=== PATIENT | female | born 1945 | race Caucasian/White ===

== ENCOUNTER → 2016-07-19 | Outpatient (CLI) | payer MEDICARE, OTHER | LOC: OD 11:17 | PROVIDERS: ATTEND Nurse Practitioner Acute Care | DX: J40 Bronchitis, not specified as acute or chronic (principal) | CPT/HCPCS: 71020 ==

== ENCOUNTER → 2016-08-14 | Outpatient (CLI) | payer MEDICARE, OTHER | LOC: WI 13:06 | PROVIDERS: ATTEND Internal Medicine | DX: Z12.31 Encounter for screening mammogram for malignant neoplasm of breast (principal) | CPT/HCPCS: 77063; G0202; 77067 ==

== ENCOUNTER → 2017-09-04 | Outpatient (CLI) | payer MEDICARE, OTHER ==
--- NOTE | 2017-09-04 12:50 | WOMENS IMAGING REPORT ---
EXAM DESCRIPTION: 3D SCREENING MAMMO BILAT COMPLETED DATE/TIME: 09/04/2017 10:49 am REASON FOR STUDY: SCREENING MAMMO Z12.31 ENCNTR SCREEN MAMMOGRAM FOR MALIGNANT NEOPLASM OF CHRISTEL COMPARISON: 2015, 2016 TECHNIQUE: Standard craniocaudal and mediolateral oblique views of each breast recorded using digita l acquisition and breast tomosynthesis. LIMITATIONS: None. FINDINGS: Findings present which are benign by mammographic criteria. No suspicious masses, calcifi cations or architectural distortion. Pertinent benign findings: Fat necrosis right. Read with the assistance of CAD. .[facility] - R2 Cenova Version 1.3 .[facility] - R2 Cenova Version 1.3 .[facility] - R2 Cenova Version 2.4 .[facility] [place] R2 Cenova Version 2.4 .[facility] - R2 Cue Worker Version 9.2 Benign mammographic findings may include one or more of the following: Smooth masses, popcorn/rim/co arse calcifications, asymmetries, post-procedure changes, and lesions with long-standing stability. IMPRESSION: BENIGN MAMMOGRAPHIC FINDINGS. BIRADS 2 BREAST DENSITY: b. There are scattered areas of fibroglandular density. BIRAD: 2 BENIGN FINDING(S) RECOMMENDATION: RECOMMENDATION: ROUTINE SCREENING COMMENT: The patient has been notified of the results by letter per SA requirements. Additional no tification policies are in place for contacting patient with suspicious or incomplete findings. Quality ID #[id number]: The [employer] recommends an annual screening mammogram for women aged 40 years or over. This facility utilizes a reminder system to ensure that all patients receive reminder letters, and/or direct phone calls for appointments. This includes reminders for routine scr eening mammograms, diagnostic mammograms, or other Breast Imaging Interventions when appropriate. Th is patient will be placed in the appropriate reminder system. The [employer] (ACR) has developed recommendations for screening MRI of the breast s in certain patient populations, to be used in conjunction with mammography. Breast MRI surveillanc e may be appropriate for women with more than 20% lifetime risk of developing breast cancer as deter mined by genetic testing, significant family history of the disease, or history of mantle radiation f or Hodgkins Disease. ACR Practice Guidelines 2008. DBT Technology DBT is a type of tomographic mammography. With conventional mammography, overlapping breast tissue ma y make lesions difficult to detect, even with good compression. DBT uses an x-ray tube that rotates a round the breast, taking images at different angles. These images are then combined to create thin sl ices of the breast that the radiologist can view as a 3D reconstruction. The Hologic unit can perform full-field digital mammograms (2D imaging); or DBT (3D imaging); or both, in a combination mode that quickly performs both the mammogram and the tomosynthesis scan while the breast is still compressed. PQRS 6045F: Fluoroscopic imaging is not utilized for breast tomosynthesis. TECHNICAL DOCUMENTATION: FINDING NUMBER: (1) ASSESSMENT: (1) JOB ID: [id number] [employer]- All Rights Reserved Reading location - IP/workstation name: [email or web address]
== END ==
LOC: WI 09:56
PROVIDERS: ATTEND Internal Medicine
DX: Z12.31 Encounter for screening mammogram for malignant neoplasm of breast (principal)
CPT/HCPCS: 77063; 77067

== ENCOUNTER 2017-10-09 11:34 | Emergency (ER) | payer MEDICARE, OTHER ==
[2017-10-09] MEDS ORDERED: ONDANSETRON 4 MG TAB.RAPDIS PO ONE (12:22)
--- NOTE | 2017-10-09 12:22 | ER Document Report ---
ED Medical Screen (RME) - General Chief Complaint: Chest Pain Stated Complaint: CHEST PAIN Time Seen by Provider: 10/09/17 12:21 TRAVEL OUTSIDE OF THE U.S. IN LAST 30 DAYS: No - HPI Notes: 10/09/17 12:22 Nausea vomiting diarrhea for 3 days with chest pain 1 hour prior to arrival chest pain improved at this time history of stents last stents were placed in [place] by Dr. Cooper - Related Data Allergies/Adverse Reactions: No Known Allergies Allergy (Verified 10/09/17 12:19) Past Medical History - Past Medical History Cardiac Medical History: Reports: Hx Coronary Artery Disease, Hx Heart Attack, Hx Hypertension Psychiatric Medical History: Denies: Hx Depression Past Surgical History: Reports: Hx Cardiac Catheterization - 3 stents, Hx Hysterectomy, Hx Orthopedic Surgery - back, Hx Tonsillectomy - Immunizations Hx Diphtheria, Pertussis, Tetanus Vaccination: No Review of Systems - Review of Systems Cardiovascular: Chest pain Gastrointestinal: Diarrhea, Nausea, Vomiting Physical Exam - Vital signs Vitals: Temp Pulse Resp BP Pulse Ox 97.3 F 60 20 101/71 99 10/09/17 11:53 10/09/17 11:53 10/09/17 11:53 10/09/17 11:53 10/09/17 11:53 - Respiratory Respiratory status: No respiratory distress Chest status: Nontender Breath sounds: Normal Chest palpation: Normal Course - Vital Signs Vital signs: Temp Pulse Resp BP Pulse Ox 97.3 F 60 20 101/71 99 10/09/17 11:53 10/09/17 11:53 10/09/17 11:53 10/09/17 11:53 10/09/17 11:53 Doctor's Discharge - Discharge Referrals: RAJIV OGLESBY MD [Primary Care Provider] - Follow up as needed
--- NOTE | 2017-10-09 12:37 | RADIOLOGY REPORT (SQ) ---
EXAM DESCRIPTION: CHEST SINGLE VIEW COMPLETED DATE/TIME: 10/09/2017 12:27 pm REASON FOR STUDY: cp COMPARISON: March 2015 EXAM PARAMETERS: NUMBER OF VIEWS: One view. TECHNIQUE: Single frontal radiographic view of the chest acquired. RADIATION DOSE: NA LIMITATIONS: None. FINDINGS: LUNGS AND PLEURA: No opacities, masses or pneumothorax. No pleural effusion. MEDIASTINUM AND HILAR STRUCTURES: No masses. Contour normal. HEART AND VASCULAR STRUCTURES: Heart normal in size. Normal vasculature. BONES: No acute findings. HARDWARE: None in the chest. OTHER: Orthopedic hardware is identified in the lower thoracic and upper lumbar spine. IMPRESSION: NO ACUTE RADIOGRAPHIC FINDING IN THE CHEST. TECHNICAL DOCUMENTATION: JOB ID: [id number] [employer]- All Rights Reserved Reading location - IP/workstation name: [email or web address]
--- NOTE | 2017-10-09 13:15 | EKG REPORT ---
SEVERITY:- NORMAL ECG - SINUS RHYTHM : Confirmed by: Richardson Ferreira MD 09-Oct-2017 13:14:26
[2017-10-09 13:45] LABS: ABSOLUTE EOSINOPHILS # (AUTO) 0.1 10^3/uL (0.0-0.6); ABSOLUTE LYMPHOCYTES (AUTO) 1.2 10^3/uL (0.5-4.7); ABSOLUTE MONOCYTES (AUTO) 0.5 10^3/uL (0.1-1.4); ABSOLUTE NEUT (AUTO) 4.3 10^3/uL (1.7-8.2); BASOPHILS % (AUTO) 0.6 % (0-2); EOSINOPHILS % (AUTO) 2.1 % (0-6); HEMATOCRIT 39.4 % (36.0-47.0); HEMOGLOBIN 13.3 g/dL (12.0-15.5); LYMPHOCYTES % (AUTO) 19.8 % (13-45); MEAN CORPUSCULAR HEMOGLOBIN 29.7 pg (27.0-33.4); MEAN CORPUSCULAR HGB CONC 33.8 g/dL (32.0-36.0); MEAN CORPUSCULAR VOLUME 88 fl (80-97); MONOCYTES % (AUTO) 8.8 % (3-13); PLATELET COUNT 241 10^3/uL (150-450); RED CELL DISTRIBUTION WIDTH 15.6 % (11.5-14.0); SEGMENTED NEUTROPHILS % (AUTO) 68.7 % (42-78); TOTAL CELLS COUNTED % (AUTO) 100 %; WHITE BLOOD COUNT 6.2 10^3/uL (4.0-10.5)
[2017-10-09 13:47] LABS: INTERNATIONAL RATION (INR) 0.94; PROTHROMBIN TIME 13.1 SEC (11.4-15.4)
[2017-10-09 14:12] LABS: CREATINE KINASE MB 1.06 ng/mL (<4.55)
[2017-10-09 14:15] LABS: TROPONIN I < 0.012 ng/mL
[2017-10-09 14:35] LABS: ALANINE AMINOTRANSFERASE 20 U/L (9-52); ALBUMIN 4.3 g/dL (3.5-5.0); ALKALINE PHOSPHATASE 83 U/L (38-126); ANION GAP 13 (5-19); ASPARTATE AMINO TRANSFERASE 19 U/L (14-36); BILIRUBIN,DIRECT 0.4 mg/dL (0.0-0.4); BILIRUBIN,TOTAL 0.4 mg/dL (0.2-1.3); BLOOD UREA NITROGEN 20 mg/dL (7-20); CALCIUM 9.7 mg/dL (8.4-10.2); CARBON DIOXIDE 31 mmol/L (22-30); CHLORIDE 98 mmol/L (98-107); CREATINE KINASE 43 U/L (30-135); GLUCOSE 95 mg/dL (75-110); LIPASE 66.5 U/L (23-300); POTASSIUM 4.3 mmol/L (3.6-5.0); SODIUM 141.7 mmol/L (137-145); TOTAL PROTEIN 6.9 g/dL (6.3-8.2)
--- NOTE | 2017-10-09 15:07 | ER Document Report ---
ED General <FERMÍN WANG - Last Filed: 10/09/17 17:56> - General Mode of Arrival: Ambulatory Information source: Patient TRAVEL OUTSIDE OF THE U.[place]. IN LAST 30 DAYS: No <WILMAN GUO - Last Filed: 10/10/17 18:12> - General Chief Complaint: Chest Pain Stated Complaint: CHEST PAIN Time Seen by Provider: 10/09/17 12:21 Notes: Patient is a 72 year old female with HTN and depression a history of nSTEMI ( May 08, 2014), cardiac stents x5 (last placed in Mar 2017) and back surgery presents to the emergency department complaining of chest pain onset around 1100 today. Patient states she began to have left sided neck, jaw and shoulder pain which she states feels similar to when she had a nSTEMI in 2014. Patient also complains of nausea, vomiting, and diarrhea onset Saturday. She states she would have diarrhea at least 3-4x a day describing it as black loose stool. Patient admits to taking Pepto Bismol in attempt to alleviate her symptoms. At bedside patient states she feels better after receiving medications in triage. Patient is currently taking Plavix and and Percocet 10 mg 2x daily. (WILMAN GUO) - Related Data Allergies/Adverse Reactions: No Known Allergies Allergy (Verified 10/09/17 12:19) Past Medical History - General Information source: Patient - Social History Smoking Status: Never Smoker Chew tobacco use (# tins/day): No Frequency of alcohol use: None Drug Abuse: None Family History: Reviewed & Not Pertinent Patient has suicidal ideation: No Patient has homicidal ideation: No - Past Medical History Cardiac Medical History: Reports: Hx Coronary Artery Disease, Hx Heart Attack, Hx Hypertension Musculoskeltal Medical History: Reports Other - Lumbar triangle hernia Psychiatric Medical History: Reports: Hx Depression Traumatic Medical History: Reports: Hx Fractures - Compression fracture of T4 Past Surgical History: Reports: Hx Cardiac Catheterization - 5 stents, last placed in Mar 2017, Hx Hysterectomy, Hx Orthopedic Surgery - Fusion of T12-S1., Hx Tonsillectomy - Immunizations Hx Diphtheria, Pertussis, Tetanus Vaccination: No <WILMAN GUO - Last Filed: 10/10/17 18:12> Review of Systems - Review of Systems Constitutional: No symptoms reported EENT: See HPI Cardiovascular: See HPI, Chest pain Respiratory: No symptoms reported Gastrointestinal: See HPI, Diarrhea, Nausea, Vomiting Genitourinary: No symptoms reported Female Genitourinary: No symptoms reported Musculoskeletal: See HPI Skin: No symptoms reported Hematologic/Lymphatic: No symptoms reported Neurological/Psychological: No symptoms reported -: Yes All other systems reviewed and negative <WILMAN GUO - Last Filed: 10/10/17 18:12> Physical Exam - General General appearance: Appears well, Alert In distress: None - HEENT Head: Normocephalic, Atraumatic Eyes: Normal Conjunctiva: Normal Extraocular movements intact: Yes Pupils: PERRL Neck: Normal - Respiratory Respiratory status: No respiratory distress Chest status: Tender - Left anterior chest wall tenderness to palpation Breath sounds: Normal Chest palpation: Normal - Cardiovascular Rhythm: Regular Heart sounds: Normal auscultation Murmur: No Friction rub: No Gallop: None auscultated - Abdominal Inspection: Normal Distension: No distension Bowel sounds: Normal Tenderness: Nontender Organomegaly: No organomegaly - Back Back: Other - Left flank contains hernia, soft, reduicble, consistent with retroperitoneal approach to back surgery - Extremities General upper extremity: Normal ROM General lower extremity: Normal ROM - Neurological Neuro grossly intact: Yes Cognition: Normal Orientation: AAOx4 Laverne Coma Scale Eye Opening: Spontaneous [place] Coma Scale Verbal: Oriented [place] Coma Scale Motor: Obeys Commands [place] Coma Scale Total: 15 Speech: Normal - Psychological Associated symptoms: Normal affect, Normal mood - Skin Skin Temperature: Warm Skin Moisture: Dry Skin Color: Normal <WILMAN GUO - Last Filed: 10/10/17 18:12> - Vital signs Vitals: Temp Pulse Resp BP Pulse Ox 97.3 F 60 20 101/71 99 10/09/17 11:53 10/09/17 11:53 10/09/17 11:53 10/09/17 11:53 10/09/17 11:53 Course - Laboratory Result Diagrams: 10/09/17 13:03 10/09/17 13:03 <FERMÍN WANG - Last Filed: 10/09/17 17:56> - Laboratory Result Diagrams: 10/09/17 13:03 10/09/17 13:03 <WILMAN GUO - Last Filed: 10/10/17 18:12> - Re-evaluation Re-evalutation: 10/09/17 17:56 Patient is feeling much better. She states her nauseousness is remained gone since getting the Zofran. She has not had any diarrhea while she is here. She has had almost 2 L of IV fluids at this time. She is comfortable being discharged with prescription for Zofran. She has a follow-up appointment with her primary care provider in 2 days. (FERMÍN WANG) - Vital Signs Vital signs: Temp Pulse Resp BP Pulse Ox 97.4 F 65 20 133/57 H 100 10/09/17 18:19 10/09/17 18:19 10/09/17 11:53 10/09/17 18:19 10/09/17 18:19 - Laboratory Laboratory results interpreted by me: 10/09/17 10/09/17 10/09/17 13:03 13:03 16:39 RDW 15.6 H Carbon Dioxide 31 H Ur Leukocyte Esterase TRACE H Urine Ascorbic Acid 40 H Discharge <FERMÍN WANG - Last Filed: 10/09/17 17:56> <WILMAN GUO - Last Filed: 10/10/17 18:12> - Discharge Clinical Impression: Nausea vomiting and diarrhea, Chest wall pain Chest pain Qualifiers: Chest pain type: unspecified Qualified Code(s): R07.9 - Chest pain, unspecified Condition: Stable Disposition: HOME, SELF-CARE Additional Instructions: Gastroenteritis: You most likely have gastroenteritis. This is an irritation of the stomach and intestinal tract. It's usually caused by a virus, but can also be caused by bacteria, toxins that cause food poisoning, or excessive alcohol intake. Symptoms may include fever, painful abdominal cramps, nausea, vomiting , and diarrhea. Start with small amounts (two to six ounces) of clear liquids (soft drinks , herb teas, broth, etc). Try to take fluids frequently even if you are vomiting, to prevent dehydration. When liquids are being consumed successfully , advance to small amounts of bland food (mashed potato, toast) for 6 - 12 hours. Gastroenteritis rarely requires medication. It goes away by itself. Use good handwashing so you don't spread germs. Wash underwear in very hot water. If symptoms are severe, talk to the doctor. Call your physician if blood appears in your vomitus or stool, if vomiting lasts longer than 24 hours, if the abdominal pain worsens or becomes localized to one area, or if you develop high fever. Chest Wall Pain: Your chest pain has been diagnosed as coming from the chest wall. This is often caused by straining the muscles or joints in the chest during physical activity, direct trauma, coughing, or vigorous vomiting. Persons with arthritis are especially prone to this type of pain, due to inflammation of the cartilage joints near the breast bone. Occasionally, no cause can be found. Rest from strenuous physical activity. This kind of chest pain is usually made worse by movement of the chest. Depending on the symptoms, we may prescribe medicine for pain, muscle relaxation, and antiinflammatory effects. If the pain is new, and seems to be due to muscle strain, cold packs can help. Otherwise, apply gentle warmth to the painful area for 15 minutes every hour or two. You should contact the doctor immediately if things change. Further evaluation is needed if you develop a fever or cough, if the nature of the pain changes, or if you become short of breath. Take the medication as prescribed for nausea if needed. Drink small sips of cool clear liquids throughout the day in the evening. Take Pepto-Bismol or Imodium-AD for diarrhea if needed. Follow-up with your primary care provider in 2 days as planned. RETURN TO THE EMERGENCY ROOM IF ANY NEW OR WORSENING SYMPTOMS. Prescriptions: Ondansetron [Zofran Odt 4 mg Tablet] 1 - 2 tab PO Q4H #20 tab.rapdis Referrals: RAJIV OGLESBY MD [Primary Care Provider] - Follow up as needed Matt Attestation: 10/09/17 17:58 I personally performed the services described in the documentation, reviewed and edited the documentation which was dictated to the scribe in my presence, and it accurately records my words and actions. (FERMÍN WANG) Peteyibe Documentation - Scribe Written by Matt:: Matt Bryant, 10/09/2017 15:53 acting as scribe for :: Sherita <WILMAN GUO - Last Filed: 10/10/17 18:12>
[2017-10-09] MEDS ORDERED: KETOROLAC TROMETHAMINE INJ/PF 30 MG/1 ML SDV IV ONE (15:17)
[2017-10-09] MEDS ORDERED: DEXTROSE 5%-NORMAL SALINE 1,000 ML IV ONE (15:17)
[2017-10-09] MEDS ORDERED: NORMAL SALINE 1000 ML 1,000 ML IV ONE (16:17)
[2017-10-09 17:09] LABS: APPEARANCE,URINE SLIGHTLY-CLOUDY; BILIRUBIN,URINE NEGATIVE (NEGATIVE); COLOR,URINE YELLOW; GLUCOSE, URINE NEGATIVE (NEGATIVE); KETONES,URINE NEGATIVE (NEGATIVE); LEUKOCYTE ESTERASE,URINE TRACE (NEGATIVE); NITRITE,URINE NEGATIVE (NEGATIVE); PROTEIN,URINE NEGATIVE (NEGATIVE); URINE SPECIFIC GRAVITY 1.012; UROBILINOGEN,URINE NEGATIVE mg/dL (<2.0)
[2017-10-09 18:24] VITALS: BP 133/57
== END 2017-10-09 18:40 | disposition home or self-care (01) ==
LOC: ER 11:34
DX: R07.89 Other chest pain (principal); M54.2 Cervicalgia; R68.84 Jaw pain; M25.519 Pain in unspecified shoulder; K46.9 Unspecified abdominal hernia without obstruction or gangrene; I25.10 Atherosclerotic heart disease of native coronary artery without angina pectoris; I10 Essential (primary) hypertension; I25.2 Old myocardial infarction; R11.2 Nausea with vomiting, unspecified; R19.7 Diarrhea, unspecified; R19.5 Other fecal abnormalities; Z95.5 Presence of coronary angioplasty implant and graft; Z79.02 Long term (current) use of antithrombotics/antiplatelets; Z79.891 Long term (current) use of opiate analgesic
CPT/HCPCS: 93005; 99285; 96361; 96374; 36415; 82553; 82550; 83690; 85025; 85610; 80053; 81001; 84484; 71045; 93010; A9270; J1885; J7030; S0119

== ENCOUNTER → 2017-10-11 | Outpatient (CLI) | payer MEDICARE, OTHER ==
--- NOTE | 2017-10-11 14:19 | RADIOLOGY REPORT (SQ) ---
EXAM DESCRIPTION: CT ABD/PELVIS WITH IV ORAL COMPLETED DATE/TIME: 10/11/2017 1:59 pm REASON FOR STUDY: ABD PAIN (R10.9) R10.9 UNSPECIFIED ABDOMINAL PAIN R19.7 DIARRHEA, UNSPECIFIED COMPARISON: 04/14/2015. TECHNIQUE: CT scan of the abdomen and pelvis performed using helical scanning technique with dynamic intravenous contrast injection. No oral contrast. Images reviewed with lung, soft tissue, and bone windows. Reconstructed coronal and sagittal MPR images reviewed. Delayed images for evaluation of the urinary system also acquired. All images stored on PACS. All CT scanners at this facility use dose modulation, iterative reconstruction, and/or weight based d osing when appropriate to reduce radiation dose to as low as reasonably achievable (ALARA). [facility]: Dose Right [facility]: CareDose [facility]: Dose Right [facility]: Teradose 4D [facility]: Notch CONTRAST TYPE AND DOSE: contrast/concentration: Isovue 370.00 mg/ml; Total Contrast Delivered: 70.0 ml; Total Saline Delivered: 54.0 ml RENAL FUNCTION: Creatinine 0.8. RADIATION DOSE: CT Rad equipment meets quality standard of care and radiation dose reduction techniq ues were employed. CTDIvol: 5.1 - 6.0 mGy. DLP: 559 mGy-cm.. LIMITATIONS: Motion artifact. FINDINGS: LOWER CHEST: No significant findings. No nodules or infiltrates. LIVER: Normal size. No masses. No dilated ducts. SPLEEN: Normal size. No focal lesions. PANCREAS: No masses. No significant calcifications. No adjacent inflammation or peripancreatic fluid collections. Pancreatic duct not dilated. GALLBLADDER: No identified stones by CT criteria. No inflammatory changes to suggest cholecystitis. ADRENAL GLANDS: No significant masses or asymmetry. RIGHT KIDNEY AND URETER: No solid masses. No significant calcifications. No hydronephrosis or hyd roureter. LEFT KIDNEY AND URETER: No solid masses. No significant calcifications. No hydronephrosis or hydr oureter. AORTA AND VESSELS: No aneurysm. No dissection. Renal arteries, SMA, celiac without stenosis. RETROPERITONEUM: No retroperitoneal adenopathy, hemorrhage or masses. BOWEL AND PERITONEAL CAVITY: No masses or inflammatory changes. No free fluid or peritoneal masses. APPENDIX: Not visualized. PELVIS: No mass. No free fluid. Normal bladder. ABDOMINAL WALL: No masses. Again seen is an abdominal wall hernia in the left flank containing a por tion of the descending colon. BONES: Surgical changes in the spine with hardware. No acute findings. OTHER: No other significant finding. IMPRESSION: 1. ABDOMINAL WALL HERNIA IN THE LEFT FLANK CONTAINING A PORTION OF THE DESCENDING COLON. NO EVIDENCE OF OBSTRUCTION. NO CHANGE FROM THE PRIOR STUDY. 2. SURGICAL CHANGES IN THE SPINE WITH HARDWARE. 3. NO OTHER SIGNIFICANT OR ACUTE FINDING IN THE ABDOMEN OR PELVIS ON CT SCAN WITH IV CONTRAST. TECHNICAL DOCUMENTATION: JOB ID: [id number] Quality ID # [id number]: Final reports with documentation of one or more dose reduction techniques (e.g., Au tomated exposure control, adjustment of the mA and/or kV according to patient size, use of iterative reconstruction technique) 2010 [employer]- All Rights Reserved Reading location - IP/workstation name: [email or web address]
== END ==
LOC: RAD 10:33
PROVIDERS: ATTEND Physician Assistant
DX: R10.9 Unspecified abdominal pain (principal); K43.9 Ventral hernia without obstruction or gangrene
CPT/HCPCS: 74177; 82565

== ENCOUNTER 2017-10-14 09:17 | Emergency (ER) | payer MEDICARE, OTHER ==
--- NOTE | 2017-10-14 09:50 | ER Document Report ---
ED Respiratory Problem - General Chief Complaint: Shortness Of Breath Stated Complaint: BREATHING DIFFICULTY Time Seen by Provider: 10/14/17 09:48 Mode of Arrival: Medic Information source: Patient, Emergency Med Personnel TRAVEL OUTSIDE OF THE [place]. IN LAST 30 DAYS: No - HPI Patient complains to provider of: Short of breath Onset: Yesterday Duration: Continuous Quality of pain: Dull Severity: Mild Context: denies: Hx asthma, Hx COPD, Recent cardiac event Short of Breath: Moderate Associated symptoms: Chills, Extertional dyspnea, Short of breath. denies: Ankle/leg swelling, Cough, Leg/calf/joint pain Worsened by: ANY ACTIVITY Similar symptoms previously: No Recently seen / treated by doctor: Yes - [facility] E.DAdelia, 10/09 AND 10/11 - Related Data Allergies/Adverse Reactions: No Known Allergies Allergy (Verified 10/09/17 12:19) Past Medical History - General Information source: Patient, [facility] Records - Social History Smoking Status: Never Smoker Cigarette use (# per day): No Chew tobacco use (# tins/day): No Frequency of alcohol use: None Drug Abuse: None Lives with: Family Family History: Reviewed & Not Pertinent - Past Medical History Cardiac Medical History: Reports: Hx Coronary Artery Disease, Hx Heart Attack, Hx Hypertension Neurological Medical History: Reports: None Endocrine Medical History: Reports: None Renal/ Medical History: Reports: None. Denies: Hx Peritoneal Dialysis Malignancy Medical History: Reports: None GI Medical History: Reports: None Musculoskeltal Medical History: Reports Hx Arthritis Psychiatric Medical History: Reports: Hx Depression Traumatic Medical History: Reports: Hx Fractures - Compression fracture of T4 Past Surgical History: Reports: Hx Cardiac Catheterization - 5 stents, last placed in Mar 2017, Hx Hysterectomy, Hx Orthopedic Surgery - Fusion of T12-S1., Hx Tonsillectomy - Immunizations Hx Diphtheria, Pertussis, Tetanus Vaccination: No Review of Systems - Review of Systems Constitutional: Chills, Weakness EENT: No symptoms reported Cardiovascular: Dyspnea, Lightheaded Respiratory: Short of breath. denies: Cough, Hemoptysis Gastrointestinal: Diarrhea, Vomiting, Black stools. denies: Blood streaked bowels, Blood in vomit, Rectal bleeding Genitourinary: No symptoms reported Female Genitourinary: Post menopausal Musculoskeletal: No symptoms reported Skin: No symptoms reported Neurological/Psychological: Weakness Physical Exam - Vital signs Vitals: Resp 14 10/14/17 09:33 Interpretation: Normal. No: Tachycardic, Hypoxic, Tachypneic - General General appearance: Appears well, Alert In distress: None - HEENT Head: Normocephalic Eyes: Pale conjunctiva Ears: Normal Nasal: Normal Mouth/Lips: Normal Mucous membranes: Dry - MILDLY Pharynx: Normal Neck: Normal - Respiratory Respiratory status: No respiratory distress Breath sounds: Normal - Cardiovascular Rhythm: Regular Heart sounds: Normal auscultation Murmur: No - Abdominal Inspection: Normal Distension: No distension Bowel sounds: Hypoactive Tenderness: Tender - MILD, GENERALIZED - Rectal Tenderness: No Stool: See lab result, Other - DARK BROWN - Back Back: Normal - Extremities General upper extremity: Normal inspection General lower extremity: Normal inspection - Neurological Neuro grossly intact: Yes Cognition: Normal Orientation: AAOx4 - Psychological Associated symptoms: Normal affect, Normal mood - Skin Skin Temperature: Warm Skin Moisture: Dry Skin Color: Pale Skin Turgor: Elastic Course - Re-evaluation Re-evalutation: 10/14/17 15:55 Patient continues to complain of ongoing back pain, but is otherwise subjectively unchanged. She is alert, cooperative, and in no apparent distress. Pulse rate is borderline tachycardic and blood pressure is borderline hypotensive, but these have been stable over the last several hours. Transport service is here to take patient to [place]. She is stable for transport. - Vital Signs Vital signs: Temp Pulse Resp BP Pulse Ox 98.4 F 17 109/61 100 10/14/17 15:01 10/14/17 15:01 10/14/17 15:01 10/14/17 15:01 - Laboratory Result Diagrams: 10/14/17 09:57 10/14/17 09:57 Laboratory results interpreted by me: 10/14/17 10/14/17 09:57 09:57 WBC 13.0 H RBC 3.15 L Hgb 9.3 L Hct 27.8 L RDW 15.5 H Seg Neutrophils % 82.0 H Lymphocytes % 10.1 L Absolute Neutrophils 10.7 H BUN 42 H Total Protein 5.7 L - EKG Interpretation by Ga EKG shows normal: Sinus rhythm, [place], Intervals, QRS Complexes. abnormal: ST-T Waves - BORDERLINE T ABNLS, NS Rate: Normal Rhythm: NSR - Consults DR. VILLAGOMEZ Time consulted: 12:22 Reason for consultation: 10/14/17 12:41 ACCEPTS PATIENT FOR TRANSFER TO [facility] (NO [facility] C[facility] AVAILABLE @ [facility] Discharge - Discharge Clinical Impression: Upper gastrointestinal bleed Anemia Qualifiers: Anemia type: other cause Other causes of anemia: acute posthemorrhagic Qualified Code(s): D62 - Acute posthemorrhagic anemia Condition: Fair Disposition: [facility] Referrals: ROSA ISELA MERCER PA-C [NO LOCAL MD] - Follow up as needed
[2017-10-14 10:08] LABS: ABSOLUTE EOSINOPHILS # (AUTO) 0.1 10^3/uL (0.0-0.6); ABSOLUTE LYMPHOCYTES (AUTO) 1.3 10^3/uL (0.5-4.7); ABSOLUTE MONOCYTES (AUTO) 0.9 10^3/uL (0.1-1.4); ABSOLUTE NEUT (AUTO) 10.7 10^3/uL (1.7-8.2); BASOPHILS % (AUTO) 0.3 % (0-2); EOSINOPHILS % (AUTO) 0.8 % (0-6); HEMATOCRIT 27.8 % (36.0-47.0); HEMOGLOBIN 9.3 g/dL (12.0-15.5); LYMPHOCYTES % (AUTO) 10.1 % (13-45); MEAN CORPUSCULAR HEMOGLOBIN 29.4 pg (27.0-33.4); MEAN CORPUSCULAR HGB CONC 33.4 g/dL (32.0-36.0); MEAN CORPUSCULAR VOLUME 88 fl (80-97); MONOCYTES % (AUTO) 6.8 % (3-13); PLATELET COUNT 231 10^3/uL (150-450); RED BLOOD COUNT 3.15 10^6/uL (3.72-5.28); RED CELL DISTRIBUTION WIDTH 15.5 % (11.5-14.0); TOTAL CELLS COUNTED % (AUTO) 100 %
--- NOTE | 2017-10-14 10:15 | RADIOLOGY REPORT (SQ) ---
EXAM DESCRIPTION: CHEST SINGLE VIEW COMPLETED DATE/TIME: 10/14/2017 10:02 am REASON FOR STUDY: sob COMPARISON: 10/09/2017 EXAM PARAMETERS: NUMBER OF VIEWS: One view. TECHNIQUE: Single frontal radiographic view of the chest acquired. RADIATION DOSE: NA LIMITATIONS: None. FINDINGS: LUNGS AND PLEURA: No opacities, masses or pneumothorax. No pleural effusion. MEDIASTINUM AND HILAR STRUCTURES: No masses. Contour normal. HEART AND VASCULAR STRUCTURES: Heart normal in size. Normal vasculature. BONES: No acute findings. HARDWARE: None in the chest. OTHER: No other significant finding. IMPRESSION: NO ACUTE RADIOGRAPHIC FINDING IN THE CHEST. TECHNICAL DOCUMENTATION: JOB ID: [id number] [employer]- All Rights Reserved Reading location - IP/workstation name: [email or web address]
[2017-10-14] MEDS ORDERED: NORMAL SALINE 1000 ML 1,000 ML IV PRN (10:23)
[2017-10-14 10:29] LABS: ALANINE AMINOTRANSFERASE 24 U/L (9-52); ALBUMIN 3.5 g/dL (3.5-5.0); ALKALINE PHOSPHATASE 64 U/L (38-126); ANION GAP 12 (5-19); ASPARTATE AMINO TRANSFERASE 16 U/L (14-36); BILIRUBIN,DIRECT 0.2 mg/dL (0.0-0.4); BILIRUBIN,TOTAL 0.2 mg/dL (0.2-1.3); BLOOD UREA NITROGEN 42 mg/dL (7-20); CALCIUM 8.9 mg/dL (8.4-10.2); CARBON DIOXIDE 29 mmol/L (22-30); CHLORIDE 103 mmol/L (98-107); CREATINE KINASE 30 U/L (30-135); GLUCOSE 91 mg/dL (75-110); POTASSIUM 3.8 mmol/L (3.6-5.0); SODIUM 144.1 mmol/L (137-145); TOTAL PROTEIN 5.7 g/dL (6.3-8.2)
[2017-10-14 10:39] LABS: CREATINE KINASE MB 0.63 ng/mL (<4.55)
[2017-10-14 10:42] LABS: TROPONIN I < 0.012 ng/mL
[2017-10-14] MEDS ORDERED: FENTANYL CITRATE INJ/PF 100 MCG/2 ML AMPUL IV ONE ×2 (11:41→13:08)
[2017-10-14] MEDS ORDERED: PANTOPRAZOLE SODIUM 40 MG VIAL IV PRN (11:41)
[2017-10-14 14:37] LABS: APPEARANCE,URINE CLEAR; BILIRUBIN,URINE NEGATIVE (NEGATIVE); COLOR,URINE STRAW; GLUCOSE, URINE NEGATIVE (NEGATIVE); KETONES,URINE NEGATIVE (NEGATIVE); LEUKOCYTE ESTERASE,URINE NEGATIVE (NEGATIVE); NITRITE,URINE NEGATIVE (NEGATIVE); PROTEIN,URINE NEGATIVE (NEGATIVE); URINE SPECIFIC GRAVITY 1.017; UROBILINOGEN,URINE NEGATIVE mg/dL (<2.0)
--- NOTE | 2017-10-14 15:33 | EKG REPORT ---
SEVERITY:- BORDERLINE ECG - SINUS RHYTHM BORDERLINE T ABNORMALITIES, DIFFUSE LEADS : Confirmed by: Wilma Reddy MD 14-Oct-2017 15:33:08
[2017-10-14 15:54] VITALS: BP 109/61
== END 2017-10-14 15:53 | disposition short-term general hospital (02) ==
LOC: ER 09:17
DX: K92.2 Gastrointestinal hemorrhage, unspecified (principal); D62 Acute posthemorrhagic anemia; R06.02 Shortness of breath; R68.83 Chills (without fever); R53.1 Weakness; R19.7 Diarrhea, unspecified; R42 Dizziness and giddiness; R11.10 Vomiting, unspecified; R10.817 Generalized abdominal tenderness; M54.9 Dorsalgia, unspecified; I25.10 Atherosclerotic heart disease of native coronary artery without angina pectoris; I10 Essential (primary) hypertension; I25.2 Old myocardial infarction; Z95.5 Presence of coronary angioplasty implant and graft; Z98.1 Arthrodesis status
CPT/HCPCS: 93005; 96376; 99285; 96361; 96374; 86900; 86901; 36415; 82553; 86850; 82550; 85025; 82272; 80053; 81001; 84484; 87493; 71045; 93010; J3010; J7030

== ENCOUNTER → 2018-04-24 | Outpatient (CLI) | payer MEDICARE, OTHER ==
[2018-04-25 15:37] LABS: CYTOPLASMIC (C-ANCA) <1:20 titer (Neg:<1:20)
[2018-04-27 06:10] LABS: ATYPICAL PANCA <1:20 titer (Neg:<1:20); PERINUCLEAR (P-ANCA) <1:20 titer (Neg:<1:20)
== END ==
LOC: OD 10:52
PROVIDERS: ATTEND Internal Medicine
DX: M34.9 Systemic sclerosis, unspecified (principal)
CPT/HCPCS: 36415; 86021

== ENCOUNTER → 2018-09-04 | Outpatient (CLI) | payer MEDICARE, OTHER ==
--- NOTE | 2018-09-05 12:03 | WOMENS IMAGING REPORT ---
EXAM DESCRIPTION: 3D SCREENING MAMMO BILAT COMPLETED DATE/TIME: 09/04/2018 1:22 pm REASON FOR STUDY: Z12.31 3D BILATERAL SCREENING MAMMOGRAM Z12.31 ENCNTR SCREEN MAMMOGRAM FOR MALIGN ANT NEOPLASM OF [place] COMPARISON: 2015, 2016, 2017 TECHNIQUE: Standard craniocaudal and mediolateral oblique views of each breast recorded using digita l acquisition and breast tomosynthesis. LIMITATIONS: None. FINDINGS: Findings present which are benign by mammographic criteria. No suspicious masses, calcific ations or architectural distortion. Pertinent benign findings: Benign bilateral breast parenchymal calcifications and intramammary lymph nodes. Read with the assistance of CAD. .[facility] - [employer] Associate [employer] Professor Version 9.2 Benign mammographic findings may include one or more of the following: Smooth masses, popcorn/rim/coa rse calcifications, asymmetries, post-procedure changes, and lesions with long-standing stability. IMPRESSION: Assessment: BENIGN MAMMOGRAPHIC FINDINGS. BIRADS 2 BREAST DENSITY: b. There are scattered areas of fibroglandular density. BIRAD: 2 BENIGN FINDING(S) RECOMMENDATION: ROUTINE SCREENING COMMENT: The patient has been notified of the results by letter per [place] requirements. Additional no tification policies are in place for contacting patient with suspicious or incomplete findings. Quality ID #[id number]: The [employer] recommends an annual screening mammogram for women aged 40 years or over. This facility utilizes a reminder system to ensure that all patients receive reminder letters, and/or direct phone calls for appointments. This includes reminders for routine scr eening mammograms, diagnostic mammograms, or other Breast Imaging Interventions when appropriate. Th is patient will be placed in the appropriate reminder system. TECHNICAL DOCUMENTATION: FINDING NUMBER: (1) ASSESSMENT: (1) JOB ID: [id number] [facility]- All Rights Reserved Reading location - IP/workstation name: [email or web address]
== END ==
LOC: WI 12:58
PROVIDERS: ATTEND Internal Medicine
DX: Z12.31 Encounter for screening mammogram for malignant neoplasm of breast (principal)
CPT/HCPCS: 77063; 77067

== ENCOUNTER → 2019-11-02 | Outpatient (CLI) | payer MEDICARE, OTHER ==
--- NOTE | 2019-11-02 13:36 | WOMENS IMAGING REPORT ---
EXAM DESCRIPTION: 3D SCREENING MAMMO BILAT IMAGES COMPLETED DATE/TIME: 11/02/2019 12:04 pm REASON FOR STUDY: Z12.31 ENCOUNTER FOR SCREENING MAMMOGRAM FOR MALIGNANT NEOPLASM OF BREAST Z12.31 ENCNTR SCREEN MAMMOGRAM FOR MALIGNANT NEOPLASM OF [place]RISETL COMPARISON: 2017 and subsequent. EXAM PARAMETERS: Standard craniocaudal and mediolateral oblique views of each breast recorded using digital acquisition and breast tomosynthesis. Read with the assistance of CAD. .[facility] - [employer] Version 9.2 LIMITATIONS: None. FINDINGS: Findings present which are benign by mammographic criteria. No suspicious masses, calcific ations or architectural distortion. Pertinent benign findings: Scattered benign findings to include small stable right breast masses and benign calcifications. Benign mammographic findings may include one or more of the following: Smooth masses, popcorn/rim/coa rse calcifications, asymmetries, post-procedure changes, and lesions with long-standing stability. IMPRESSION: BENIGN MAMMOGRAPHIC FINDINGS. BIRADS 2 BREAST DENSITY: b. There are scattered areas of fibroglandular density. BIRAD: ASSESSMENT: 2 BENIGN FINDING(S) RECOMMENDATION: ROUTINE SCREENING COMMENT: The patient has been notified of the results by letter per MQSA requirements. Additional no tification policies are in place for contacting patient with suspicious or incomplete findings. Quality ID #225: The [employer] recommends an annual screening mammogram for women aged 40 years or over. This facility utilizes a reminder system to ensure that all patients receive reminder letters, and/or direct phone calls for appointments. This includes reminders for routine scr eening mammograms, diagnostic mammograms, or other Breast Imaging Interventions when appropriate. Th is patient will be placed in the appropriate reminder system. TECHNICAL DOCUMENTATION: FINDING NUMBER: (1) ASSESSMENT: (1) JOB ID: [id number] [employer]- All Rights Reserved Reading location - IP/workstation name: [email or web address]
== END ==
LOC: WI 11:49
PROVIDERS: ATTEND Internal Medicine
DX: Z12.31 Encounter for screening mammogram for malignant neoplasm of breast (principal)
CPT/HCPCS: 77063; 77067